=== PATIENT | male | born 2000 | race Caucasian/White ===

== ENCOUNTER 2021-08-30 23:07 | Emergency (ER) | payer OTHER ==
[~2021-08-30] VITALS: Ht 177.8 cm; Wt 69.9 kg
--- NOTE | 2021-08-30 23:24 | NUR ---
Alana peralta in [facility] - 08/30/21 at 2324 by MARIBELL PT TAKEN TO XRAY
[2021-08-30 23:40] VITALS: BP 143/80
--- NOTE | 2021-08-30 23:49 | NUR ---
PT SENT TO LOBBY TO WAIT FOR RESULTS.
[2021-08-31] MEDS ORDERED: IBUPROFEN 600 MG TAB PO ONE (00:15)
[2021-08-31 00:59] LABS: BASOPHILS % (AUTO) 0.6 % (0.0-2.0); EOSINOPHILS # (AUTO) 0.3 K/uL (0-0.4); EOSINOPHILS % (AUTO) 6.1 % (0.0-4.0); HEMATOCRIT 42.9 % (36-52); HEMOGLOBIN 14.8 g/dL (12.0-18.0); LYMPHOCYTES # (AUTO) 1.5 K/uL (2.0-11.5); LYMPHOCYTES % (AUTO) 28.3 % (20.5-51.1); MEAN CORPUSCULAR HEMOGLOBIN 30 pg (27-31); MEAN CORPUSCULAR HGB CONC 34 g/dL (33-37); MEAN CORPUSCULAR VOLUME 86.9 fL (80-94); MONOCYTES # (AUTO) 0.6 K/uL (0.8-1.0); MONOCYTES % (AUTO) 12.5 % (1.7-9.3); NEUTROPHILS # (AUTO) 2.7 K/uL (1.8-7.7); NEUTROPHILS % (AUTO) 52.5 % (42.2-75.2); PLATELET COUNT (AUTO) 223 K/uL (140-450); RED BLOOD CELL COUNT(AUTO) 4.94 MIL/uL (4.20-6.10); RED CELL DISTRIBUTION WIDTH 12.5 % (11.6-13.7); WHITE BLOOD COUNT (AUTO) 5.1 K/uL (4.8-10.8)
[2021-08-31 01:19] LABS: ANION GAP 12.4 (8-16); CARBON DIOXIDE 26.7 mmol/L (21-32); POTASSIUM 4.1 mmol/L (3.5-5.1)
--- NOTE | 2021-08-31 01:57 | NUR ---
Patient discharged with v/s stable. Written and verbal after care instructions given and explained. Patient verbalized understanding. Ambulatory with steady gait. All questions addressed prior to discharge. Results provided at discharge per pt request. Advised to follow up with PMD.
== END 2021-08-31 01:57 | disposition home or self-care (01) ==
LOC: MED 23:07
DX: R07.9 Chest pain, unspecified (principal); F17.210 Nicotine dependence, cigarettes, uncomplicated
CPT/HCPCS: 36415; 71045; 80048; 84484; 85025; 93005; 99285